=== PATIENT | female | born 1980 | race Caucasian/White ===

== ENCOUNTER 2020-04-04 20:02 | Emergency (ER) | payer MEDICAID ==
[~2020-04-04] VITALS: Ht 162.6 cm; Wt 70.5 kg
[~2020-04-04 20:02] MED LIST: HYDR-2514 PO; HYDR-4383 PO; ONDA4TAB59 PO; PHEN-786 PO
[2020-04-04 21:03] LABS: BASOPHILS % (AUTO) 0.3 % (0-1); EOSINOPHILS # (AUTO) 0.1 X10'3 (0-0.9); HEMATOCRIT 35.3 % (35.0-45.0); HEMOGLOBIN 12.6 g/dl (12.0-16.0); LYMPHOCYTES # (AUTO) 2.9 X10'3 (1.1-4.8); LYMPHOCYTES % (AUTO) 31.9 % (21-51); MEAN CORPUSCULAR HEMOGLOBIN 31.1 PG (27.0-31.0); MEAN CORPUSCULAR HGB CONC 35.6 g/dL (33.0-36.5); MEAN CORPUSCULAR VOLUME 87.3 FL (78-98); MEAN PLATELET VOLUME 7.5 FL (7.4-10.4); MONOCYTES # (AUTO) 0.7 X10'3 (0-0.9); MONOCYTES % (AUTO) 7.6 % (2-12); NEUTROPHILS # (AUTO) 5.5 X10'3 (1.8-7.7); NEUTROPHILS % (AUTO) 59.2 % (42-75); PLATELET COUNT 321 X10'3 (140-440); RED BLOOD COUNT 4.04 X10'6 (4.20-5.60); RED CELL DISTRIBUTION WIDTH 12.6 % (11.5-14.5); WHITE BLOOD COUNT 9.3 X10'3 (4.5-11.0)
--- NOTE | 2020-04-04 21:08 | NUR ---
Patient is up to bathroom to void.
[2020-04-04 21:14] LABS: ALANINE AMINOTRANSFERASE 25 U/L (12-78); ALBUMIN 3.3 G/DL (3.4-5.0); ALKALINE PHOSPHATASE 41 IU/L (46-116); ANION GAP 12 (8-16); ASPARTATE AMINO TRANSFERASE 25 U/L (10-37); BILIRUBIN,TOTAL 0.3 MG/DL (0.1-1.0); BLOOD UREA NITROGEN 7 MG/DL (7-18); BUN/CREATININE RATIO 12.5 (6.6-38.0); CALCIUM 9.1 MG/DL (8.5-10.1); CHLORIDE 104 MMOL/L (99-107); CREATININE 0.56 MG/DL (0.40-0.90); ETHANOL < 0.010 GM/DL (0.0-0.010); GLUCOSE 86 MG/DL (70-104); SODIUM 141 MMOL/L (135-145); TOTAL CARBON DIOXIDE 25.3 MMOL/L (24-32); TOTAL PROTEIN 6.6 G/DL (6.4-8.2); eGFR > 90 ML/MIN
[2020-04-04 21:19] LABS: POTASSIUM 2.8 MMOL/L (3.5-5.1)
[2020-04-04] MEDS ORDERED: haloperidol lactate 5mg/ml inj IM ONE (21:20)
[2020-04-04] MEDS ORDERED: LORazepam 1 MG tablet PO ONE (21:20)
[2020-04-04] MEDS ORDERED: potassium Cl 20 mEq SR tablet PO STA (21:21)
--- NOTE | 2020-04-04 21:26 | NUR ---
Patient voided, urine sent for UA. Patient is hypokalemic. PO replacement will be done. Patient exhibits dellusional behavior, "I'm missing my face, I'm talking to my spirits." Patient is redirected to bed. Close observation, Haldol and Ativan will be given.
[2020-04-04 21:34] LABS: URINE HCG POSITIVE (NEG)
[2020-04-04] MEDS ORDERED: LORazepam 2 mg/ml vial IM ONE (21:35)
[2020-04-04 21:48] LABS: URINE AMPHETAMINE SCREEN NEGATIVE (Neg); URINE BARBITUATE SCREEN NEGATIVE (Neg); URINE BENZODIAZEPINES SCREEN NEGATIVE (Neg); URINE CANNABINOID SCREEN POSITIVE (Neg); URINE COCAINE SCREEN NEGATIVE (Neg); URINE METHADONE SCREEN NEGATIVE (Neg); URINE OPIATE SCREEN NEGATIVE (Neg); URINE PHENCYCLIDINE SCREEN NEGATIVE (Neg)
--- NOTE | 2020-04-04 21:50 | NUR ---
Patient ran from security in her paranoid and delusional state. She was escorted back to her bed. Per Doctor Ibrahima we are to hold on her Haldol injection as patients test is positive. Geodon 10 mg is now ordered. KATHY Longoria is now speaking with the patient building rapport. The patient agrees to taking Geodon.
[2020-04-04] MEDS ORDERED: ziprasidone IM 20mg inj **IM only IM ONE (22:00)
--- NOTE | 2020-04-04 22:25 | NUR ---
This patient is resting quietly now, she remains delusional. She has eaten a sandwich and has been given a warm blanket. A tech is sitting at bedside obeserving patient.
--- NOTE | 2020-04-04 23:16 | NUR ---
Patients called and provided the following history. Patient has been getting Geodon 80 mg PO BID. In addition patient was recently started on [place] as patient was hearing increased voices, etc. Patient doesn't know [place] dossage, he states [facility] is her pharmacy. This senior mortgage underwriter contacted [facility] [employer] [facility] and no current medicaions are on their list. Patient is reported to be followed by Dr. Montalvo at [facility]. In the interm, will start this patient on Geodon 80 mg PO BID. [facility] will have to be contacted in the am to obtain a med rec. Per the this patient had quit taking her medications sometime recently.
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
--- NOTE | 2020-04-04 23:44 | NUR ---
Patient is sleeping quietly on her left side in bed.
--- NOTE | 2020-04-05 01:05 | NUR ---
Patient is sleeping supine in bed. In view from nursing station.
--- NOTE | 2020-04-05 02:03 | NUR ---
Patient sleeping quietly, on her right side, patient has self repositioned.
--- NOTE | 2020-04-05 03:12 | NUR ---
Patient is supine in bed, sleeping quietly in bed.
--- NOTE | 2020-04-05 03:53 | NUR ---
Patient sleeping quietly, in view from nursing station. Color is good. Resp rate is 14.Good rise and fall of chest.
--- NOTE | 2020-04-05 05:14 | NUR ---
Patient awoke, ambulated to bathroom to void. Returned to bed to sleep. Cooperative.
--- NOTE | 2020-04-05 06:39 | NUR ---
pt up and smiled back ,asked the pt is she waiting for breakfast tray ? pt said yes.pt now aitting in bed and drinking water.matilde olivera sitting in front to see for the pt acitivities.
--- NOTE | 2020-04-05 07:14 | NUR ---
pt resting in bed quietly ,with banket over,no sign of acute distress noted at this time .will cont to monitor.
--- NOTE | 2020-04-05 07:52 | NUR ---
[facility] ,i also asked about pt medication list if they have any,as per donald they haven't seen pt in 6 months tamir they don't have any medication list for med reconcilation.
[2020-04-05] MEDS ORDERED: ziprasidone 20mg capsule PO SCH (08:00)
--- NOTE | 2020-04-05 08:28 | NUR ---
pt finished her breakfast ,up to void ,came back to bed no distress noted.pt has taken her morning meds without any difficulity ,pt said she wants to keep her cup of coffee ,no other concernat this time ,pt talk to herself intermittently saying"no one gives a shit".
--- NOTE | 2020-04-05 09:13 | NUR ---
pt sitting up in bed nodding her head side to side,sitter in front of pt bed,will cont to monitor.
--- NOTE | 2020-04-05 09:45 | NUR ---
pt resting in bed quietly blanket over,rr even and nonlabored at this time.will cont to monitor ,no distress noted.
--- NOTE | 2020-04-05 09:51 | NUR ---
pt up in bed to void.
--- NOTE | 2020-04-05 10:00 | NUR ---
[facility] eval at bedside to evaluate the pt ,will cont to monitor.
--- NOTE | 2020-04-05 11:00 | NUR ---
pt was sleeping quietly on her side ,awoke up the pt for lab draw.pt was cooperative no distress noted,went back to sleep again.will cont to monitor.
[2020-04-05 11:26] LABS: ALBUMIN 2.6 G/DL (3.4-5.0); ANION GAP 6 (8-16); BILIRUBIN,TOTAL 0.3 MG/DL (0.1-1.0); BLOOD UREA NITROGEN 7 MG/DL (7-18); CALCIUM 8.1 MG/DL (8.5-10.1); CHLORIDE 105 MMOL/L (99-107); GLUCOSE 87 MG/DL (70-104); POTASSIUM 3.4 MMOL/L (3.5-5.1); SODIUM 138 MMOL/L (135-145); TOTAL CARBON DIOXIDE 26.7 MMOL/L (24-32); TOTAL PROTEIN 5.4 G/DL (6.4-8.2); eGFR > 90 ML/MIN
[2020-04-05 11:27] LABS: ALANINE AMINOTRANSFERASE 24 U/L (12-78); ALBUMIN/GLOBULIN RATIO 0.9 (1.1-1.5); ALKALINE PHOSPHATASE 35 IU/L (46-116); ASPARTATE AMINO TRANSFERASE 23 U/L (10-37)
--- NOTE | 2020-04-05 11:49 | NUR ---
pt called to check on her asking about the poc and also how she is doing?Informed that pt is on 5150 hold ,also informed that pt is resting rgt now ,no vistors allowed because of covid 19 , said he will keep calling to ask about update.
--- NOTE | 2020-04-05 12:34 | NUR ---
pt asleep at this time,no sign of distress noted,rr even and nonlabored ,will cont to monitor.
--- NOTE | 2020-04-05 12:35 | NUR ---
notified dr brunson about pt k+ level - 3.2 in person while he was back in overflow.no orders.
--- NOTE | 2020-04-05 12:58 | NUR ---
pt lunch at the bedside.
--- NOTE | 2020-04-05 13:11 | NUR ---
pt eating her dinner.
--- NOTE | 2020-04-05 14:40 | NUR ---
pt sleeping in supine position snoring in btw ,pt rr even and nonlabored,will cont to monitor.
--- NOTE | 2020-04-05 16:30 | NUR ---
PT CALLED PER HIM ,"MY TALKING ABOUT MAGICAL STUFF,SHE IS SAYING I WAS INVISIBLE AND YELLING ON HER SHOUTING AND SCREAMING" . PT SAID IT WAS NOT ME, MY FRIEND CALLED THAT MY IS ON STREET SHOUTING AND SCREAMING. PT SAID IT NOT NORMAL ,I WILL CALL YOU BACK.
--- NOTE | 2020-04-05 16:52 | NUR ---
PT MOVED TO BED 20 FOR VISUAL CHECK ON THE PT, PT WANDER IN THE HALLWAY.
--- NOTE | 2020-04-05 17:20 | NUR ---
PT VOIDED CAME BACK TO BED ASKED HOW SHE IS DOING PER PT SHE IS FINE ASKED ABOUT PT FAMILY ,PT SAID SHE IS HERE BECAUSE OF HER ,PT SAID MY 19 YR OLD SON IS ON [place] TO [place] AND THEN SHE SMILED BACK ,PT SAID CAN SHE HAVE SOMETHING TO EAT.YOGURT GIVEN TO THE PT ,PT FINISHED IT ,PT IS COOPERATIVE. GIVEN PAIR OF SOCKS TO WEAR.
--- NOTE | 2020-04-05 17:29 | NUR ---
PT NOWING RESTING IN BED QUIETLY ,WILL CONT TO MONITOR.
--- NOTE | 2020-04-05 20:30 | NUR ---
Pt stated that she normally takes Geodon 80MG daily instead of BID. MD ordered schedule adjustments to be 40 MG BID.
--- NOTE | 2020-04-06 00:59 | NUR ---
When asked how far along in the pregancy the pt was, pt stated that she was four months pregant and then stated, "I have felt the baby much lately." Pt stated she felt the baby kicking a lot the day before yesterday, she believes night. She also stated taht the baby, "feels heavy and the baby is usually high up." This is the pt's fourth . She later states that it could be stress related. MD to be made aware. Addendum: 04/06/20 at 0127 by MOLLY MD [place] aware. Pt denies any vaginal bleeding. Upon further assessment, pt stated that she "felt a little something." Pt instructed to follow-up with OBGYN and is unaware of her next scheduled appt time. Pt did agree to follow-up with OBGYN.
--- NOTE | 2020-04-06 02:40 | NUR ---
Pt. resting in bed quietly. Appears to be comfotable.
[2020-04-06] MEDS: ziprasidone 20mg capsule PO SCH ×2 (07:09→19:21)
--- NOTE | 2020-04-06 07:15 | NUR ---
Patient nauseated but not vomiting, states she has been since she became . States she barely slept last night and is very tired but cant sleep. Appears to respond to internal stimuli at times but denies auditory hallucinations. States she sees " fuzzy light colored spirits floating by her that sometimes get close" States they do not speak to her nor are they threatening.
--- NOTE | 2020-04-06 07:54 | NUR ---
Pt up to bathroom, appears to be talking to someone or to herself. Given her am dose of Geodon.
--- NOTE | 2020-04-06 10:06 | NUR ---
Resting in bed with eyes closed
--- NOTE | 2020-04-06 11:17 | NUR ---
Up to bathroom to void. Family dropped off bag of clothing in case of transfer to inpatient, and her top dentures. Dentures given to patient with toothbrush and toothpaste.
--- NOTE | 2020-04-06 16:24 | NUR ---
Patient upset, crying wanting to talk with supervisor in circuit testing, Charge nurse Roberta seeing patient.
--- NOTE | 2020-04-06 16:40 | NUR ---
heart tones assessed by Beronica CHAVEZ, see intervention
--- NOTE | 2020-04-06 16:42 | NUR ---
PT STATES THAT SHE IS CONCERNED ABOUT HER BABY, PT IS 16 WKS AND STATES THAT SHE FEELS THAT THERE IS SOMETHING WRONG. HEART TONES WERE LOCATED BY [place] AND COUNTED FOR A FULL MINUTE TO BE 160 BPM. PT STATES THAT SHE FEELS BETTER AFTER HEARING HER BABY'S HEART BEAT.
[2020-04-06] MEDS ORDERED: Melatonin 3mg tablet PO ONE (22:15)
--- NOTE | 2020-04-07 04:55 | NUR ---
Pt making freq bathroom visits and resting in bed while audibly talking to self. Pt stated, "please don't tell anyone I'm talking to myself. I'm not crazy. I'm only doing this because I have no one else to talk to. They are going to think I'm crazy. I just want to leave." Reassurance was given by nurse.
[2020-04-07 05:20] VITALS: BP 109/70
--- NOTE | 2020-04-07 06:30 | NUR ---
RECEIVED REPORT FROM LESLEY CHAVEZ.
[2020-04-07] MEDS ORDERED: potassium Cl 20 mEq SR tablet PO STA (06:58)
--- NOTE | 2020-04-07 07:30 | NUR ---
PATIENT AWAKE AND ASKING WHEN SHE CAN LEAVE, MADE HER AWARE THAT [facility] HAS TO EVALUATE HER.
[2020-04-07] MEDS: ziprasidone 20mg capsule PO SCH (07:55)
--- NOTE | 2020-04-07 08:00 | NUR ---
PATIENT SITTING IN HER BED TALKING TO HER NEIGHBOR, ASKING WHEN SHE CAN GET OUT OF HERE.
--- NOTE | 2020-04-07 09:10 | NUR ---
[facility] AT BEDSIDE TO EVALUATE PATIENT. PATIENT VERY HAPPY TO SEE THEM.
--- NOTE | 2020-04-07 09:57 | NUR ---
SPOKE WITH [facility], PLAN TO SEND HOME WITH 24 HR SUPERVISION PER AND PLAN FOR HER TO GO FOR URGENT APPOINTMENT WITH [facility].
--- NOTE | 2020-04-07 10:15 | NUR ---
Pleasant, resting in bed smiling r/t aware that she's going home soon.
--- NOTE | 2020-04-07 11:42 | NUR ---
Plan to d/c patient, will be picking her up. [facility] to contact and she'll d/c within a few hours.
[2020-04-07 12:14] LABS: ALBUMIN 3.1 G/DL (3.4-5.0); ANION GAP 8 (8-16); BLOOD UREA NITROGEN 10 MG/DL (7-18); BUN/CREATININE RATIO 22.2 (6.6-38.0); CHLORIDE 103 MMOL/L (99-107); CREATININE 0.45 MG/DL (0.40-0.90); GLUCOSE 81 MG/DL (70-104); POTASSIUM 4.3 MMOL/L (3.5-5.1); SODIUM 137 MMOL/L (135-145); TOTAL CARBON DIOXIDE 25.9 MMOL/L (24-32); eGFR > 90 ML/MIN
--- NOTE | 2020-04-07 12:15 | NUR ---
Resting in bed, smiling and excited to go home.
--- NOTE | 2020-04-07 12:30 | NUR ---
[facility] CALLED AND FOLLOW-UP APPT ON 04/14 @0900 ATTEMPTED TO MAKE AN APPT WITH DR MANZO FOR PHYCIATRIC F/U. PT IS NOT A PT OF DR MANZO AND THE METAL MODEL BUILDER WILL CALL DR MANZO TO [facility] F/U CARE. ONCOLOGY NAVIGATOR WITH CALL BACK WITH INFORMATION
--- NOTE | 2020-04-07 13:04 | NUR ---
Pending pick-up. Eating lunch, no s/sx of distress noted.
--- NOTE | 2020-04-07 13:14 | NUR ---
Noted labs resulted, noted K+ 4.3 normal.
--- NOTE | 2020-04-07 13:40 | NUR ---
Discussed discharge instructions with patient, verbalized understanding, signed d/c paperwork. Eager to discharge. Pending curing pickling packer per Osvaldo.
--- NOTE | 2020-04-07 13:46 | NUR ---
Received information that patient's is on his way to pick her up.
--- NOTE | 2020-04-07 14:15 | NUR ---
Patient's , Osvaldo arrived. Returned patient her belongings, got dressed. Escorted out via ambulation per [facility] staff and security site supervisor without event. Patient aware of follow-up appointment in maternity clinic for Apr [address] Law psychiatrist to make follow-up appointment.
== END 2020-04-07 14:15 | disposition home or self-care (01) ==
LOC: ER 20:02
DX: O99.342 Other mental disorders complicating pregnancy, second trimester (principal); F31.9 Bipolar disorder, unspecified; E87.6 Hypokalemia; F41.9 Anxiety disorder, unspecified; F12.90 Cannabis use, unspecified, uncomplicated; Z3A.16 16 weeks gestation of pregnancy; Z90.49 Acquired absence of other specified parts of digestive tract; Z72.0 Tobacco use; Z88.0 Allergy status to penicillin; Z88.8 Allergy status to other drugs, medicaments and biological substances; Z91.040 Latex allergy status; Z79.899 Other long term (current) drug therapy
CPT/HCPCS: 36415; 80048; 80053; 80305; 80320; 81025; 85025; 96372; 99285; J3486

== ENCOUNTER 2024-03-21 23:53 | Emergency (ER) | payer MEDICAID ==
[~2024-03-21] VITALS: Ht 167.6 cm; Wt 64.2 kg
[2024-03-22] MEDS: LORazepam 2 mg/ml vial IM ONE (01:15)
[2024-03-22] MEDS: diphenhydrAMINE 50 mg/ml inj IM ONE (01:23)
[2024-03-22] MEDS: haloperidol lactate 5mg/ml inj IM ONE (01:23)
[2024-03-22 01:31] LABS: BASOPHILS # (AUTO) 0.1 X10'3 (0-0.2); BASOPHILS % (AUTO) 0.7 % (0-1); EOSINOPHILS # (AUTO) 0.2 X10'3 (0-0.9); EOSINOPHILS % (AUTO) 2.1 % (0-6); HEMATOCRIT 39.5 % (35.0-45.0); HEMOGLOBIN 13.1 g/dl (12.0-16.0); LYMPHOCYTES # (AUTO) 1.2 X10'3 (1.1-4.8); LYMPHOCYTES % (AUTO) 12.1 % (21-51); MEAN CORPUSCULAR HGB CONC 33.2 g/dL (33.0-36.5); MEAN CORPUSCULAR VOLUME 87.3 FL (78-98); MEAN PLATELET VOLUME 6.6 FL (7.4-10.4); MONOCYTES # (AUTO) 1.1 X10'3 (0-0.9); MONOCYTES % (AUTO) 11.3 % (2-12); NEUTROPHILS # (AUTO) 7.5 X10'3 (1.8-7.7); NEUTROPHILS % (AUTO) 73.8 % (42-75); PLATELET COUNT 524 X10'3 (140-440); RED BLOOD COUNT 4.52 X10'6 (4.20-5.60); RED CELL DISTRIBUTION WIDTH 14.7 % (11.5-14.5); WHITE BLOOD COUNT 10.1 X10'3 (4.5-11.0)
[2024-03-22 01:51] LABS: ALBUMIN 4.4 G/DL (3.4-5.0); ANION GAP 13 (8-16); BLOOD UREA NITROGEN 26 MG/DL (7-18); BUN/CREATININE RATIO 28.3 (10.0-20.0); CALCIUM 9.2 MG/DL (8.5-10.1); CHLORIDE 102 MMOL/L (99-107); CREATININE 0.92 MG/DL (0.40-0.90); ETHANOL < 10 MG/DL (<10); GLUCOSE 122 MG/DL (70-104); POTASSIUM 3.7 MMOL/L (3.5-5.1); SODIUM 136 MMOL/L (135-145); TOTAL CARBON DIOXIDE 21.2 MMOL/L (24-32); eCRCL 74 ML/MIN; eGFR 67 ML/MIN
[2024-03-22 11:07] LABS: BILIRUBIN,URINE SMALL (Neg); CLARITY,URINE CLOUDY (Clear); COLOR,URINE AMBER (Yellow); GLUCOSE, URINE NEGATIVE (Neg); KETONES,URINE NEGATIVE (Neg); LEUKOCYTE ESTERASE ,URINE TRACE (Neg); NITRITES, URINE NEGATIVE (Neg); OCCULT BLOOD,URINE LARGE (Neg); PH,URINE 5.5 (4.8-8.0); PROTEIN,URINE 30 mg/dl (Neg); UROBILINOGEN,URINE 0.2 E.U/dL (0.2-1.0)
[2024-03-22 11:09] LABS: URINE HCG NEGATIVE (NEG)
[2024-03-22 11:20] LABS: UA COLLECTION TYPE NON-SPECIFIED
[2024-03-22 11:21] LABS: BACTERIA,URINE FEW /HPF (Neg); RBC,URINE TNTC /HPF (0-2)
[2024-03-22 11:23] LABS: MUCUS STRANDS FEW /LPF (Neg); SQUAMOUS EPITHELIAL CELL,UR FEW /LPF (FEW); WBC,URINE 0-4 /HPF (0-4)
[2024-03-22 11:28] LABS: URINE AMPHETAMINE SCREEN POSITIVE (Neg); URINE BARBITUATE SCREEN NEGATIVE (Neg); URINE BENZODIAZEPINES SCREEN NEGATIVE (Neg); URINE CANNABINOID SCREEN POSITIVE (Neg); URINE COCAINE SCREEN NEGATIVE (Neg); URINE METHADONE SCREEN NEGATIVE (Neg); URINE OPIATE SCREEN NEGATIVE (Neg); URINE PHENCYCLIDINE SCREEN NEGATIVE (Neg)
[2024-03-22 17:37] VITALS: BP 110/73; PULSE 80; RESP 14; TEMP 97.1; O2SAT 99
== END 2024-03-22 19:11 | disposition home or self-care (01) ==
LOC: ER 23:54
DX: F45.8 Other somatoform disorders (principal); Z20.822 Contact with and (suspected) exposure to COVID-19; F41.9 Anxiety disorder, unspecified; F12.90 Cannabis use, unspecified, uncomplicated; Z88.0 Allergy status to penicillin; Z88.8 Allergy status to other drugs, medicaments and biological substances; Z91.040 Latex allergy status; Z79.899 Other long term (current) drug therapy; Z90.49 Acquired absence of other specified parts of digestive tract
CPT/HCPCS: 36415; 80048; 80305; 80320; 81001; 81025; 84443; 85025; 87811; 96372; 99284; J1200; J1630; J2060